=== PATIENT | male | born 1965 | race Two or more races ===

== ENCOUNTER 2019-10-11 10:52 | Emergency (ER) | payer SELFPAY ==
[~2019-10-11] VITALS: Ht 167.6 cm; Wt 59.0 kg
[2019-10-11 11:07] VITALS: BP 102/61
--- NOTE | 2019-10-11 12:02 | NUR ---
ASSUMED CARE OF PT FOR LUNCH BREAK. PT REPORTS FEELING COLD AND WANTS SOMETHING TO EAT. PT DENIES ANY OTHER MEDICAL COMPLAINT. +ETOH.
--- NOTE | 2019-10-11 13:20 | NUR ---
AFTER PERIOD OF REST PATIENT AWOKE ASKING FOR SANDWICH PROVIDED WITH CEREAL/WATER/MILK. TOLERATED. PATIENT THEN HELPED AMBULATE IN ROOM (TOLERATED W/OUT DIFFICULTY)
--- NOTE | 2019-10-11 14:08 | NUR ---
DISCHARGED HOME (PROVIDED WITH [employer])
== END 2019-10-11 14:12 | disposition home or self-care (01) ==
LOC: ED 13:40
DX: F10.220 Alcohol dependence with intoxication, uncomplicated (principal); Y90.9 Presence of alcohol in blood, level not specified
CPT/HCPCS: 99283

== ENCOUNTER 2019-10-11 19:57 | Emergency (ER) | payer SELFPAY ==
[~2019-10-11] VITALS: Ht 172.7 cm; Wt 68.0 kg
--- NOTE | 2019-10-11 20:00 | NUR ---
UNABLE TO OBTAIN TEMP, PT NOT FOLLOWING COMMANDS WELL. CHEWS ON THERMOMETER WHEN PLACED IN HIS MOUTH
[2019-10-11 20:03] VITALS: BP 106/79
--- NOTE | 2019-10-11 20:07 | NUR ---
BIB [facility], WAS FOUND BEHIND A STORE INTOXICATED. PT GEORGIAN SPEAKING. BED RAILS UP X2. PT WITH VERY STONG ETOH ODOR. BS URINAL PROVIDED.
--- NOTE | 2019-10-11 20:18 | NUR ---
PT PROVIDED CRACKERS AND WATER
--- NOTE | 2019-10-11 21:02 | NUR ---
PT AMBULATORY TO HIS WHEELCHAIR, PT THEN ELOPED.
== END 2019-10-11 21:06 | disposition left against medical advice (07) ==
LOC: ED 21:00
DX: F10.220 Alcohol dependence with intoxication, uncomplicated (principal); Y90.0 Blood alcohol level of less than 20 mg/100 ml
CPT/HCPCS: 99283

== ENCOUNTER 2019-10-12 12:22 | Emergency (ER) | payer SELFPAY ==
--- NOTE | 2019-10-12 12:29 | NUR ---
JESSICA GARRETT. PT COLLECTED FROM PARKING LOT OFF [address] NEARBY EMPLOYEES STATE THE PT HAS BEEN SITTING THERE IN HIS W/C "FOR A WHILE". PT ENGLISH SPEAKING. PT DID NOT ANSWER ANY OF [facility]'S QUESTIONS. UNKNOWN NAME, B-DATE, ALLERGIES, HX. PT KEEPS STATING "IM HUNGRY" IN [place], BUT DOES NOT ANSWER ANY OTHER QUESTIONS. CONNECTED TO MONITORING. CALL LIGHT IN REACH. FALL PRECAUTIONS IN PLACE.
--- NOTE | 2019-10-12 12:46 | NUR ---
MD KNEW PT FROM PT BEING HERE AT [facility] YESTERDAY. REGISTRATION NOTIFIED OF NAME/BIRTHDAY AND CHART CORRECTED.
--- NOTE | 2019-10-12 13:21 | NUR ---
PT RESTING ON ZHEN. ASHLEY. CALL LIGHT IN REACH.
--- NOTE | 2019-10-12 13:45 | NUR ---
PT AT CT
--- NOTE | 2019-10-12 14:01 | NUR ---
PT BACK FROM CT. CONNECTED TO ALL MONITORING.
--- NOTE | 2019-10-12 14:07 | NUR ---
ALL RESULTS ARE BACK AT THIS TIME. CHART UP FOR RECHECK.
--- NOTE | 2019-10-12 14:33 | NUR ---
PT RESTING COMFORTABLY ON GURNEY. SARAHN. PT GIVEN FOOD. MTF.
[2019-10-12 15:21] VITALS: BP 108/71
--- NOTE | 2019-10-12 15:22 | NUR ---
PT RESTING COMFORTABLY ON GURClearFit. PT ATE SOME OF HIS SNACKS. CONNECTED TO MONITORING. CALL LIGHT IN REACH.
--- NOTE | 2019-10-12 16:41 | NUR ---
PT ELOPED PRIOR TO RECEIVING DC PAPERWORK. THIS NURSE RETURNED TO PT ROOM AND PT AND PERSONAL W/C WERE GONE.
== END 2019-10-12 16:43 | disposition left against medical advice (07) ==
LOC: MERGE 12:22 → EDBD 12:22 → ED 15:45
DX: F10.220 Alcohol dependence with intoxication, uncomplicated (principal); R51 Headache; Y90.0 Blood alcohol level of less than 20 mg/100 ml
CPT/HCPCS: 70450; 99284

== ENCOUNTER 2019-10-13 13:26 | Inpatient (IN) | payer OTHER ==
[~2019-10-13] VITALS: Ht 167.6 cm; Wt 61.9 kg
[2019-10-13] MEDS ORDERED: LORazepam 2 MG/ML, 1ML ONE (13:27)
[2019-10-13] MEDS ORDERED: MAGNESIUM SULFATE 1 GM, THIAMINE 100 MG, FOLIC ACID 1 MG, MVI ADULT 10 ML in SODIUM CHL... IV ONE (13:30)
[2019-10-13] MEDS ORDERED: SODIUM CHLORIDE 0.9% 1,000 ML IV ONE (13:30)
[2019-10-13] MEDS ORDERED: SODIUM CHLORIDE FLUSH 10ML SYR IVF ONE (13:30)
--- NOTE | 2019-10-13 13:40 | NUR ---
PT BIB [facility] FOR A WITNESSED DETOX SEIZURE. PT HAS COARSE TREMORS. 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 20G IV IN RAC. PT GIVEN 4MG ZOFRAN AND 100ML NS DIET AID. SEIZURE PADS IN PLACE. PT PLACED ON ALL MONITORS, CALL LIGHT IN REACH. DENIES ANY FURTHER NEEDS OR CONCERNS, ERP AT BEDSIDE.
[2019-10-13 13:52] LABS: BASOPHILS # (AUTO) 0.11 x10^3/uL (0-0.1); BASOPHILS % (AUTO) 1 % (0-1); EOSINOPHILS # (AUTO) 0.03 x10^3/uL (0-0.4); EOSINOPHILS % (AUTO) 0 % (1-7); LYMPHOCYTES # (AUTO) 1.61 x10^3/uL (1-3.4); LYMPHOCYTES % (AUTO) 19 % (22-44); MD NO; MEAN CORPUSCULAR HEMOGLOBIN 32.5 pg (27.5-34.5); MEAN CORPUSCULAR HGB CONC 33.1 g/dL (33.2-36.2); MEAN CORPUSCULAR VOLUME 98.1 fL (81-97); MONOCYTES % (AUTO) 8 % (2-9); NEUTROPHILS # (AUTO) 6.18 x10^3/uL (1.8-6.8); NEUTROPHILS % (AUTO) 72 % (42-75); PLATELET COUNT 142 x10^3/uL (130-400); RED BLOOD COUNT 3.42 x10^6/uL (4.38-5.82); RED CELL DISTRIBUTION WIDTH 14.2 % (9.4-14.8)
[2019-10-13] MEDS: LORazepam 2 MG/ML, 1ML IVPush PRN ×2 (13:58→14:15)
[2019-10-13 14:00] LABS: INTERNATIONAL NORMALIZED RATIO 1.15 (0.93-1.1)
[2019-10-13] MEDS ORDERED: PLEASE ENTER HEIGHT AND WEIGHT MC SCH (14:00)
[2019-10-13 14:03] LABS: ALANINE AMINOTRANSFERASE 56 U/L (12-78); ALBUMIN 3.4 g/dL (3.4-5.0); ANION GAP 13 mmol/L (5-15); CALCIUM 8.1 mg/dL (8.5-10.1); CHLORIDE 100 mmol/L (98-107); CREATININE 0.78 mg/dL (0.7-1.3)
[2019-10-13 14:05] LABS: ALKALINE PHOSPHATASE 291 U/L (45-117); BILIRUBIN,TOTAL 2.1 mg/dL (0.2-1.0); TOTAL PROTEIN 8.6 g/dL (6.4-8.2)
[2019-10-13 14:14] LABS: ACETONE, SERUM Trace (10mg/dL) mg/dL (Negative)
[2019-10-13] MEDS ORDERED: MAGNESIUM SULFATE PMX 2GM/50ML 50 ML IV ONE (14:30)
[2019-10-13] MEDS ORDERED: POTASSIUM CHLORIDE 40 MEQ in D5%-0.9% NACL 1,000 ML IV SCH (14:30)
--- NOTE | 2019-10-13 14:56 | NUR ---
REPORT CALLED TO [facility], RECEIVING RN. PT RESTING IN BED, IV INFUSING SLOWLY DUE TO POSITIONAL NATURE OF SITE PLACEMENT. PT VERBALIZES UNDERSTANDING WHEN TOLD HE NEEDS TO KEEP HIS ARM STRAIGHT, BUT NOT COMPLAINT ONCE STAFF LEAVES THE ROOM. TREMORS MOSTLY RESOLVED AT THIS POINT WITH MEDICATION PER MAR. DENIES ANY NEEDS AT THIS TIME. CALL LIGHT IN REACH. AWAITING TRANSPORT.
--- NOTE | 2019-10-13 15:13 | NUR ---
Pt transfered from ED to floor on yari. ASHLEY. No needs expressed.
[2019-10-13 15:47] VITALS: BP 117/62
[2019-10-13] MEDS ORDERED: ONDANSETRON 2MG/ML, 2ML IVPush PRN (16:00)
[2019-10-13] MEDS ORDERED: LORazepam 0.5MG TABLET PO PRN (16:00)
[2019-10-13] MEDS ORDERED: ONDANSETRON ODT 4 MG PO PRN (16:00)
[2019-10-13] MEDS ORDERED: LORazepam 1MG TABLET PO PRN ×3 (16:00)
[2019-10-13] MEDS: ENOXAPARIN 40 MG/0.4 ML SQ SCH (16:19)
[2019-10-13 17:23] LABS: BILIRUBIN, DIRECT 0.9 mg/dL (0.1-0.2); BILIRUBIN,INDIRECT 0.9 mg/dL (0.0-2.0); BILIRUBIN,TOTAL 1.8 mg/dL (0.2-1.0)
[2019-10-13 19:59] LABS: AMPHETAMINE SCREEN, URINE Negative (Negative); BARBITURATE SCREEN, URINE Positive (Negative)
[2019-10-13 20:00] LABS: BENZODIAZEPINE SCREEN, URINE Negative (Negative); CANNABINOID SCREEN, URINE Negative (Negative); COCAINE SCREEN, URINE Negative (Negative); METHADONE SCREEN, URINE Negative (Negative); OPIATE SCREEN, URINE Negative (Negative)
[2019-10-13 21:07] VITALS: BP 112/72
[2019-10-13] MEDS: LORazepam 1MG TABLET PO PRN (21:47)
[2019-10-14 00:07] VITALS: BP 112/72
[2019-10-14] MEDS: LACTATED RINGERS 1,000 ML IV SCH ×3 (02:09→22:13)
[2019-10-14 05:35] LABS: MEAN CORPUSCULAR HEMOGLOBIN 32.6 pg (27.5-34.5); MEAN CORPUSCULAR HGB CONC 33.2 g/dL (33.2-36.2); MEAN CORPUSCULAR VOLUME 98.2 fL (81-97)
[2019-10-14 05:38] LABS: ALBUMIN 2.7 g/dL (3.4-5.0); ANION GAP 8 mmol/L (5-15); CALCIUM 7.7 mg/dL (8.5-10.1); CHLORIDE 107 mmol/L (98-107)
[2019-10-14 05:42] LABS: ALANINE AMINOTRANSFERASE 45 U/L (12-78); ALKALINE PHOSPHATASE 291 U/L (45-117); BILIRUBIN,TOTAL 1.4 mg/dL (0.2-1.0); CREATININE 0.62 mg/dL (0.7-1.3)
[2019-10-14 05:55] LABS: BASOPHILS # (AUTO) 0.05 x10^3/uL (0-0.1); BASOPHILS % (AUTO) 1 % (0-1); EOSINOPHILS # (AUTO) 0.09 x10^3/uL (0-0.4); EOSINOPHILS % (AUTO) 2 % (1-7); LYMPHOCYTES # (AUTO) 1.88 x10^3/uL (1-3.4); LYMPHOCYTES % (AUTO) 39 % (22-44); MD SCAN; MEAN PLATELET VOLUME 8.3 fL (7.4-10.4); MONOCYTES % (AUTO) 10 % (2-9); NEUTROPHILS # (AUTO) 2.32 x10^3/uL (1.8-6.8); NEUTROPHILS % (AUTO) 48 % (42-75); PLATELET COUNT 93 x10^3/uL (130-400)
[2019-10-14 07:54] VITALS: BP 116/74
[2019-10-14] MEDS: MULTIVITAMINS/MINERALS TABLET PO SCH (08:50)
[2019-10-14] MEDS: ACETAMINOPHEN 325 MG TABLET PO PRN ×3 (08:50→20:50)
[2019-10-14 14:40] VITALS: BP 111/72
[2019-10-14] MEDS: LORazepam 1MG TABLET PO PRN ×3 (14:54→20:50)
[2019-10-14] MEDS ORDERED: GADOTERATE 7.5 MMOL/15 ML SYR ONE (16:30)
[2019-10-14] MEDS: POTASSIUM CHLORIDE 20 MEQ TAB.ER.PRT PO SCH (17:28)
[2019-10-14] MEDS: ENOXAPARIN 40 MG/0.4 ML SQ SCH ×2 (17:29→17:32)
[2019-10-14 20:07] VITALS: BP 104/71
[2019-10-15 00:49] VITALS: BP 124/79
[2019-10-15 05:31] LABS: CHLORIDE 106 mmol/L (98-107)
[2019-10-15 05:39] LABS: ALANINE AMINOTRANSFERASE 45 U/L (12-78); ALKALINE PHOSPHATASE 288 U/L (45-117); ANION GAP 7 mmol/L (5-15); BILIRUBIN,TOTAL 1.2 mg/dL (0.2-1.0); CALCIUM 8.1 mg/dL (8.5-10.1); CREATININE 0.56 mg/dL (0.7-1.3); TOTAL PROTEIN 7.9 g/dL (6.4-8.2)
[2019-10-15 06:51] VITALS: BP 103/74
[2019-10-15] MEDS ORDERED: MAGNESIUM SULFATE PMX 2GM/50ML 50 ML IV ONE (08:00)
[2019-10-15] MEDS ORDERED: POTASSIUM PHOSPHATE 22 MEQ in SODIUM CHLORIDE 0.9% 500 ML IV ONE (08:00)
[2019-10-15] MEDS ORDERED: THIAMINE 100 MG in DEXTROSE 5% 50 ML IVPB SCH (09:00)
[2019-10-15] MEDS: LACTATED RINGERS 1,000 ML IV SCH (09:07)
[2019-10-15] MEDS: ACETAMINOPHEN 325 MG TABLET PO PRN ×3 (09:08→20:55)
[2019-10-15] MEDS: FOLIC ACID 1 MG TABLET PO SCH (09:08)
[2019-10-15] MEDS: POTASSIUM CHLORIDE 20 MEQ TAB.ER.PRT PO SCH ×2 (09:08→16:15)
[2019-10-15] MEDS: THIAMINE 100MG TABLET PO SCH (09:09)
[2019-10-15] MEDS: MULTIVITAMINS/MINERALS TABLET PO SCH (09:09)
[2019-10-15 12:47] VITALS: BP 112/73
[2019-10-15] MEDS: ENOXAPARIN 40 MG/0.4 ML SQ SCH (16:20)
[2019-10-15 18:57] VITALS: BP 107/69
[2019-10-15] MEDS ORDERED: TEMAZEPAM 15 MG CAPSULE PO PRN (19:30)
[2019-10-16 01:17] VITALS: BP 112/67
[2019-10-16] MEDS: ACETAMINOPHEN 325 MG TABLET PO PRN ×4 (01:23→21:56)
[2019-10-16] MEDS: LACTATED RINGERS 1,000 ML IV SCH (04:26)
[2019-10-16 07:06] VITALS: BP 115/75
[2019-10-16] MEDS: MULTIVITAMINS/MINERALS TABLET PO SCH (07:50)
[2019-10-16] MEDS: FOLIC ACID 1 MG TABLET PO SCH (07:50)
[2019-10-16] MEDS: POTASSIUM CHLORIDE 20 MEQ TAB.ER.PRT PO SCH ×2 (07:50→16:12)
[2019-10-16] MEDS: THIAMINE 100MG TABLET PO SCH (07:50)
[2019-10-16] MEDS ORDERED: POTASSIUM PHOSPHATE 44 MEQ in SODIUM CHLORIDE 0.9% 500 ML IV ONE (08:30)
[2019-10-16] MEDS ORDERED: MAGNESIUM SULFATE 3 GM in SODIUM CHLORIDE 0.9% 100 ML IV ONE (08:30)
[2019-10-16 13:45] VITALS: BP 109/71
[2019-10-16] MEDS: ENOXAPARIN 40 MG/0.4 ML SQ SCH (16:11)
[2019-10-16] MEDS: OXYcodone/APAP 5/325MG TABLET PO PRN (17:49)
[2019-10-16 18:58] VITALS: BP 113/74
[2019-10-16] MEDS: TRAZODONE 50MG TABLET PO PRN (21:56)
[2019-10-17] MEDS: OXYcodone/APAP 5/325MG TABLET PO PRN (00:16)
[2019-10-17 00:40] VITALS: BP 108/69
[2019-10-17] MEDS: ACETAMINOPHEN 325 MG TABLET PO PRN (03:25)
[2019-10-17] MEDS ORDERED: HYDROcodone/APAP 5/325 TABLET PO ONE (04:00)
[2019-10-17] MEDS: THIAMINE 100MG TABLET PO SCH (07:44)
[2019-10-17] MEDS: KETOROLAC 30 MG/1 ML IM PRN ×2 (07:44→15:09)
[2019-10-17] MEDS: FOLIC ACID 1 MG TABLET PO SCH (07:44)
[2019-10-17] MEDS: MULTIVITAMINS/MINERALS TABLET PO SCH (07:44)
[2019-10-17] MEDS: POTASSIUM CHLORIDE 20 MEQ TAB.ER.PRT PO SCH ×2 (07:50→09:00)
[2019-10-17 08:30] VITALS: BP 112/69
[2019-10-17 08:57] LABS: ALANINE AMINOTRANSFERASE 37 U/L (12-78); ANION GAP 7 mmol/L (5-15); CALCIUM 8.4 mg/dL (8.5-10.1); CHLORIDE 104 mmol/L (98-107); CREATININE 0.62 mg/dL (0.7-1.3)
[2019-10-17 08:59] LABS: ALKALINE PHOSPHATASE 257 U/L (45-117); BILIRUBIN,TOTAL 0.8 mg/dL (0.2-1.0); TOTAL PROTEIN 8.3 g/dL (6.4-8.2)
[2019-10-17] MEDS: OXYcodone IR 5MG TABLET PO PRN ×2 (11:32→18:08)
[2019-10-17 13:10] VITALS: BP 114/74
[2019-10-17] MEDS ORDERED: LORazepam 2 MG/ML, 1ML IVPush PRN ×2 (13:30→19:30)
[2019-10-17 13:56] VITALS: BP 108/73
[2019-10-17] MEDS: ENOXAPARIN 40 MG/0.4 ML SQ SCH (15:45)
[2019-10-17] MEDS ORDERED: LEVETIRACETAM 100 MG/ML, 5ML IVPB SCH (17:30)
[2019-10-17] MEDS: LEVETIRACETAM 500 MG in SODIUM CHLORIDE 0.9% 100 ML IV SCH (17:56)
[2019-10-17 19:03] VITALS: BP 103/71
[2019-10-18 00:50] VITALS: BP 98/65
[2019-10-18] MEDS: LEVETIRACETAM 500 MG in SODIUM CHLORIDE 0.9% 100 ML IV SCH ×2 (06:10→18:13)
[2019-10-18] MEDS: OXYcodone IR 5MG TABLET PO PRN ×2 (06:20→12:16)
[2019-10-18 07:30] VITALS: BP 115/77
[2019-10-18] MEDS: MULTIVITAMINS/MINERALS TABLET PO SCH (08:16)
[2019-10-18] MEDS: THIAMINE 100MG TABLET PO SCH (08:16)
[2019-10-18] MEDS: FOLIC ACID 1 MG TABLET PO SCH (08:16)
[2019-10-18 14:44] VITALS: BP 120/71
[2019-10-18] MEDS: ENOXAPARIN 40 MG/0.4 ML SQ SCH (16:34)
[2019-10-18] MEDS: GABAPENTIN 300 MG CAPSULE PO SCH ×2 (16:34→20:40)
[2019-10-18 19:58] VITALS: BP 103/63
[2019-10-18] MEDS: TRAZODONE 50MG TABLET PO PRN (20:40)
[2019-10-19] MEDS: LEVETIRACETAM 500 MG in SODIUM CHLORIDE 0.9% 100 ML IV SCH (05:59)
[2019-10-19 06:18] LABS: HCT (SEDRATE) 31.3 % (39.2-51.8)
[2019-10-19 06:31] LABS: CHLORIDE 107 mmol/L (98-107)
[2019-10-19 06:38] LABS: ALANINE AMINOTRANSFERASE 49 U/L (12-78); ALKALINE PHOSPHATASE 234 U/L (45-117); ANION GAP 7 mmol/L (5-15); BILIRUBIN,TOTAL 0.6 mg/dL (0.2-1.0); CALCIUM 8.4 mg/dL (8.5-10.1); CREATININE 0.57 mg/dL (0.7-1.3); TOTAL PROTEIN 7.5 g/dL (6.4-8.2)
[2019-10-19] MEDS: THIAMINE 100MG TABLET PO SCH (08:51)
[2019-10-19] MEDS: FOLIC ACID 1 MG TABLET PO SCH (08:51)
[2019-10-19] MEDS: MULTIVITAMINS/MINERALS TABLET PO SCH (08:51)
[2019-10-19] MEDS: GABAPENTIN 300 MG CAPSULE PO SCH ×3 (08:52→22:01)
[2019-10-19 09:26] VITALS: BP 107/64
[2019-10-19] MEDS: OXYcodone IR 5MG TABLET PO PRN (12:09)
[2019-10-19 13:07] VITALS: BP 89/64
[2019-10-19] MEDS: ENOXAPARIN 40 MG/0.4 ML SQ SCH (16:28)
[2019-10-19 20:16] VITALS: BP 110/70
[2019-10-19] MEDS: TRAZODONE 50MG TABLET PO PRN (22:05)
[2019-10-20 00:24] VITALS: BP 114/74
[2019-10-20 05:29] LABS: BASOPHILS # (AUTO) 0.05 x10^3/uL (0-0.1); BASOPHILS % (AUTO) 1 % (0-1); EOSINOPHILS # (AUTO) 0.07 x10^3/uL (0-0.4); EOSINOPHILS % (AUTO) 1 % (1-7); LYMPHOCYTES # (AUTO) 2.79 x10^3/uL (1-3.4); LYMPHOCYTES % (AUTO) 36 % (22-44); MD NO; MEAN CORPUSCULAR HGB CONC 32.5 g/dL (33.2-36.2); MEAN CORPUSCULAR VOLUME 98.4 fL (81-97); MEAN PLATELET VOLUME 8.5 fL (7.4-10.4); MONOCYTES # (AUTO) 0.95 x10^3/uL (0.2-0.8); MONOCYTES % (AUTO) 12 % (2-9); NEUTROPHILS # (AUTO) 3.83 x10^3/uL (1.8-6.8); NEUTROPHILS % (AUTO) 50 % (42-75); PLATELET COUNT 201 x10^3/uL (130-400); RED BLOOD COUNT 3.37 x10^6/uL (4.38-5.82); RED CELL DISTRIBUTION WIDTH 14.5 % (9.4-14.8)
[2019-10-20 05:35] LABS: ALBUMIN 2.9 g/dL (3.4-5.0); ANION GAP 6 mmol/L (5-15); CALCIUM 8.7 mg/dL (8.5-10.1); CHLORIDE 108 mmol/L (98-107)
[2019-10-20 05:39] LABS: ALANINE AMINOTRANSFERASE 61 U/L (12-78); ALKALINE PHOSPHATASE 237 U/L (45-117); BILIRUBIN,TOTAL 0.6 mg/dL (0.2-1.0); CREATININE 0.69 mg/dL (0.7-1.3); TOTAL PROTEIN 7.8 g/dL (6.4-8.2)
[2019-10-20 07:14] VITALS: BP 130/84
[2019-10-20] MEDS: THIAMINE 100MG TABLET PO SCH (09:25)
[2019-10-20] MEDS: MULTIVITAMINS/MINERALS TABLET PO SCH (09:25)
[2019-10-20] MEDS: FOLIC ACID 1 MG TABLET PO SCH (09:25)
[2019-10-20] MEDS: GABAPENTIN 300 MG CAPSULE PO SCH (09:26)
[2019-10-20] MEDS ORDERED: THIA100T67 PO (09:46)
[2019-10-20] MEDS ORDERED: GABA300C10 PO (09:46)
[2019-10-20] MEDS ORDERED: MULT-484 PO (09:46)
[2019-10-20] MEDS ORDERED: FOLI-17 PO (09:46)
[2019-10-20 14:30] VITALS: BP 125/75
== END 2019-10-20 16:05 | disposition home or self-care (01) | DRG 101 ==
LOC: ED 14:54 → EDIP 15:39 → 4WST 15:43 → 3N 10-18 07:28 → DCLOUNGE 10-20 15:53
PROVIDERS: ADMIT Family Medicine; ATTEND Hospitalist
DX: G40.89 Other seizures (principal); E87.1 Hypo-osmolality and hyponatremia; F05 Delirium due to known physiological condition; M86.8X8 Other osteomyelitis, other site; G62.1 Alcoholic polyneuropathy; D64.9 Anemia, unspecified; E83.39 Other disorders of phosphorus metabolism; E83.42 Hypomagnesemia; E87.6 Hypokalemia; K70.10 Alcoholic hepatitis without ascites; K76.0 Fatty (change of) liver, not elsewhere classified; M10.9 Gout, unspecified; M93.872 Other specified osteochondropathies, left ankle and foot; M93.871 Other specified osteochondropathies, right ankle and foot; Z59.0 Homelessness; F10.10 Alcohol abuse, uncomplicated
CPT/HCPCS: 36415; 73560; 73610; 73630; 96374; 96375; 99291; J7042; 70553; 71045; 76700; 80053; 80074; 80307; 82010; 82247; 82248; 82607; 82962; 83690; 83735; 84100; 84550; 85025; 85610; 85651; 86140; 87389; 93005; 93922; 95819; G0378; J1650; J1885; J1953; J2405; J3411; J3475; J3480; A9575; J2060; J7030; J7040; J7120; J7512